=== PATIENT | female | born 1985 | race Caucasian/White ===

== ENCOUNTER 2018-08-31 00:03 | Emergency (ER) | payer MEDICAID, OTHER ==
[~2018-08-31] VITALS: Ht 162.6 cm; Wt 81.2 kg
[2018-08-31 00:35] VITALS: BP 122/92
--- NOTE | 2018-08-31 00:39 | NUR ---
TO ER BED 3
--- NOTE | 2018-08-31 00:39 | NUR ---
PT PRESENTS TO ED WITH C/O RASH TO BILAT CHEECKS AND BETWEEN BROWS X3 WKS. ALSO C/O DIZZINESS AND NAUSEA X12 HRS. RASH RED AND PEELING. NO DRAINAGE. NO KNOWN ALLERGIES. UNKOWN IF COME IN CONTACT WITH ANYTHING NEW. VSS. AFEBRILE. ER MD AWARE. CONTINUE TO MONITOR.
--- NOTE | 2018-08-31 00:47 | NUR ---
REPORT GIVEN TO BEDSIDE RN
[2018-08-31 00:58] VITALS: BP 122/92
--- NOTE | 2018-08-31 00:58 | NUR ---
Patient discharged with v/s stable. Written and verbal after care instructions given and explained. Patient alert, oriented and verbalized understanding of instructions. Ambulatory with steady gait. All questions addressed prior to discharge. ID band removed. Patient advised to follow up with PMD. Rx of Hydrocortisone given. Patient educated on indication of medication including possible reaction and side effects. Opportunity to ask questions provided and answered.
== END 2018-08-31 00:58 | disposition home or self-care (01) ==
LOC: MED 00:03
DX: R21 Rash and other nonspecific skin eruption (principal); L29.9 Pruritus, unspecified
CPT/HCPCS: 81002; 81025; 99283

== ENCOUNTER 2023-10-12 03:05 | Emergency (ER) | payer MEDICAID ==
[~2023-10-12] VITALS: Ht 162.6 cm; Wt 81.6 kg
[2023-10-12 03:12] VITALS: BP 121/83; PULSE 89; RESP 15; TEMP 97.9; O2SAT 96
[2023-10-12 04:07] VITALS: BP 121/83; PULSE 89; RESP 15; TEMP 97.9
[2023-10-12 04:08] VITALS: O2SAT 98
[2023-10-12 04:33] VITALS: O2SAT 96
[2023-10-12 04:58] LABS: BASOPHILS % (AUTO) 0.3 % (0.0-2.0); EOSINOPHILS # (AUTO) 0.1 K/uL (0-0.4); EOSINOPHILS % (AUTO) 1.7 % (0.0-4.0); HEMATOCRIT 39.2 % (36-48); HEMOGLOBIN 13.3 g/dL (12.0-16.0); LYMPHOCYTES # (AUTO) 3.1 K/uL (2.5-16.5); LYMPHOCYTES % (AUTO) 41.2 % (20.5-51.1); MEAN CORPUSCULAR HEMOGLOBIN 32 pg (27-31); MEAN CORPUSCULAR HGB CONC 34 g/dL (33-37); MEAN CORPUSCULAR VOLUME 93.8 fL (80-94); MONOCYTES # (AUTO) 0.5 K/uL (0.8-1.0); MONOCYTES % (AUTO) 6.6 % (1.7-9.3); NEUTROPHILS # (AUTO) 3.8 K/uL (1.8-7.7); NEUTROPHILS % (AUTO) 50.2 % (42.2-75.2); PLATELET COUNT (AUTO) 301 K/uL (140-450); RED BLOOD CELL COUNT(AUTO) 4.18 MIL/uL (4.20-5.40); RED CELL DISTRIBUTION WIDTH 13.3 % (11.6-13.7); WHITE BLOOD COUNT (AUTO) 7.5 K/uL (4.8-10.8)
[2023-10-12 05:23] LABS: ALANINE AMINOTRANSFERASE 42 U/L (12-78); ALBUMIN 3.6 g/dL (3.4-5.0); ALKALINE PHOSPHATASE 56 U/L (50-136); ANION GAP 11.8 (8-16); ASPARTATE AMINOTRANSFERASE 38 U/L (15-37); CALCIUM 8.7 mg/dL (8.5-10.1); CARBON DIOXIDE 28.3 mmol/L (21-32); CHLORIDE 103 mmol/L (98-107); CREATININE 0.7 mg/dL (0.6-1.3); GFR ARICAN-AMERICAN 121 mL/min (>90); GFR NON ARICAN-AMERICAN 100 mL/min (>90); GLUCOSE 111 mg/dL (74-106); LIPASE 33 U/L (16-77); POTASSIUM 4.1 mmol/L (3.5-5.1); SODIUM SERUM 139 mmol/L (136-145); TOTAL BILIRUBIN 0.2 mg/dL (0.0-1.0); TOTAL PROTEIN, SERUM 7.2 g/dL (6.4-8.2); UREA NITROGEN, BLOOD 16 mg/dL (7-18)
== END 2023-10-12 05:55 | disposition home or self-care (01) ==
LOC: MED 03:05
DX: R07.89 Other chest pain (principal); R20.2 Paresthesia of skin
CPT/HCPCS: 36415; 71045; 80053; 83690; 84484; 85025; 93005; 99285

== ENCOUNTER 2023-10-25 00:41 | Emergency (ER) | payer MEDICAID ==
[~2023-10-25] VITALS: Ht 162.6 cm; Wt 81.6 kg
[2023-10-25 00:50] VITALS: BP 101/56; PULSE 90; RESP 18; TEMP 97.7; O2SAT 97
[2023-10-25] MEDS ORDERED: NAPR-337 PO (02:16)
[2023-10-25] MEDS: IBUPROFEN 600 MG TAB PO ONE (02:35)
[2023-10-25] MEDS: ACETAMINOPHEN EXTRA STRENGTH 500 MG TAB PO ONE (02:36)
== END 2023-10-25 02:40 | disposition home or self-care (01) ==
LOC: MED 00:41
DX: S93.401A Sprain of unspecified ligament of right ankle, initial encounter (principal); Z79.1 Long term (current) use of non-steroidal anti-inflammatories (NSAID); W01.0XXA Fall on same level from slipping, tripping and stumbling without subsequent striking against object, initial encounter; Y93.89 Activity, other specified; Y92.89 Other specified places as the place of occurrence of the external cause; Y99.8 Other external cause status
CPT/HCPCS: 73610; 99283